=== PATIENT | male | born 2000 | race Hispanic/Latino ===

== ENCOUNTER 2022-11-01 08:00 | Emergency (ER) | payer SELFPAY ==
[~2022-11-01] VITALS: Ht 172.7 cm; Wt 93.4 kg
[2022-11-01 08:14] VITALS: BP 119/69
[2022-11-01 08:30] VITALS: BP 126/68
[2022-11-01] MEDS ORDERED: MOTRIN400 MG/TAB PO ×2 (09:24→09:41)
[2022-11-01 09:36] VITALS: BP 126/68
== END 2022-11-01 09:45 | disposition home or self-care (01) | DRG 556 ==
LOC: ED 08:00
DX: M25.531 Pain in right wrist (principal); M79.641 Pain in right hand